=== PATIENT | male | born 1960 | race Caucasian/White ===

== ENCOUNTER 2016-11-15 19:23 | Emergency (ER) | payer BC ==
--- NOTE | 2016-11-15 20:00 | ER NURSING DOCUMENTATION ---
Nurse's Notes [facility] Name:Mireille Taylor Age:56 yrs Sex:Male :1960 Arrival Date:11/15/2016 Time:19:23 Bed1 Private MD:PhysicianVonda Diagnosis:Abrasion Presentation: 11/15 19:30 Presenting complaint: Patient states: scratch to right posterior lower leg from krista lb barbed wire. no tetanus for 17 years. Transition of care: Home. Notified ED Physician of Dr. Swain notified. 19:30 Acuity: CRYSTAL 4 lb 19:30 Method Of Arrival: Walk In lb Triage Assessment: 19:32 General: Appears in no apparent distress, Behavior is appropriate for age, pleasant. lb Pain: Denies pain. Musculoskeletal: No deficits noted. Injury Description: Abrasion sustained to right Achilles. Historical: - Allergies: PENICILLINS; - Home Meds: 1. losartan oral 2. Simvastatin Oral 3. Metoprolol Tartrate Oral - PMHx: Hypertension; HIGH CHOLESTEROL; - PSHx: Hip surgery; - Tetanus: > 10 years. - Ebola Screening: : Patient denies exposure to infectious person. Patient denies travel to an Ebola-affected area in the 21 days before illness onset. . - Immunization history: Flu Vaccine < 1 year. - Social history: Smoking status: Patient states was never smoker of tobacco. Patient uses alcohol only on a social basis. - Code Status:: Full code. Screenin:33 Infectious Disease Risk None. Abuse screen: Denies threats or abuse. Denies injuries lb from another. Nutritional screening: No deficits noted. Assessment: 19:33 See Triage Assessment done by same RN. lb Vital Signs: 19:28 BP 144 / 73 LA Sitting (auto/reg); Pulse 87 RA; Resp 16 S; Temp 98.5(O); Pulse Ox 97% em3 on R/A; Weight 117.93 kg (R); Height 5 ft. 9 in. (175.26 cm) (R); 19:28 Body Mass Index 38.39 (117.93 kg, 175.26 cm) em3 ED Course: 19:27 Patient arrived in ED. ma1 19:27 Physician, No is Private Physician. ma1 19:29 Valuables Remains with patient Patient has correct armband on for positive em3 identification. Bed in low position. Call light in reach. Side rails up X 1. 19:30 Vanessa Glass is Primary Nurse. lb 19:31 Triage completed. lb 19:48 Feliberto Swain MD is Attending Physician. tl1 Administered Medications: 19:53 Drug: Tetanus-Diphtheria Toxoid Adult 0.5 ml; {Application Penetration Tester: [employer] P[employer] ([employer]). lb Exp: 05/20/2018. Lot #: [id number]. } Route: IM; Site: left deltoid; 19:53 Follow up: Response: No adverse reaction Outcome: 19:52 Discharge ordered by . tl1 20:00 Discharged to home lb 20:00 Condition: good 20:00 Discharge Assessment: Patient awake, alert and oriented x 3. No cognitive and/or functional deficits noted. Patient verbalized understanding of disposition instructions. 20:00 Instructed on discharge instructions, follow up and referral plans. 20:00 Patient left the ED. 11/16 12:28 Discharge F/U Call: Spoke with: patient. other: Name: pt has no questions or st concerns. Signatures: Harmony Brandt, RN Contreras Serrano 3 Feliberto Swain MD MD tl1 Vanessa Glass Pauline Springer me1
[2016-11-15] MEDS ORDERED: DIPH,PERTUSS(ACELL),TET VAC/PF 0.5 ML VIAL IM ONE (20:04)
--- NOTE | 2016-11-17 20:00 | ER PHYSICIAN DOCUMENTATION ---
Physician Documentation [facility] Name:Mireille Taylor Age:56 yrs Sex:Male :1960 Arrival Date:11/15/2016 Time:19:23 Bed1 Private MD:Physician, No ED Feliberto Shukla Disposition: 11/17 08:47 Chart complete. tl1 Disposition: 11/15/16 19:52 Discharged to Home/Self Care. Impression: Abrasion. - Condition is Good. - Discharge Instructions: ABRASION. - Medical Reconciliation form form. - Follow up: Private Physician; When: As needed. - Problem is new. - Symptoms are unchanged. HPI: 11/15 19:45 This 56 yrs old Male presents to ER via Walk In with complaints of Leg Injury tl1 - RIGHT. 19:45 He scratched his right medial distal calf on some old krista barbed wire a couple hours tl1 ago. He is here only because he has not had a tetanus shot in 17 years. No other complaint.. Historical: - Allergies: PENICILLINS; - Home Meds: 1. losartan oral 2. Simvastatin Oral 3. Metoprolol Tartrate Oral - PMHx: Hypertension; HIGH CHOLESTEROL; - PSHx: Hip surgery; - Tetanus: > 10 years. - Ebola Screening: : Patient denies exposure to infectious person. Patient denies travel to an Ebola-affected area in the 21 days before illness onset. . - Immunization history: Flu Vaccine < 1 year. - Social history: Smoking status: Patient states was never smoker of tobacco. Patient uses alcohol only on a social basis. - Code Status:: Full code. ROS: 19:45 MS/extremity: Positive for abrasion. tl1 Exam: 19:50 Constitutional: This is a well developed, well nourished patient who is awake, alert, tl1 and in no acute distress. 19:50 Cardiovascular: Rate: normal. 19:50 Respiratory: Respirations: normal. 19:50 Musculoskeletal/extremity: Extremities: grossly normal except: noted in the medial aspect of right calf: He has a few very superficial scratches to his right distal medial calf which are not bleeding.. Vital Signs: 19:28 BP 144 / 73 LA Sitting (auto/reg); Pulse 87 RA; Resp 16 S; Temp 98.5(O); Pulse Ox 97% em3 on R/A; Weight 117.93 kg (R); Height 5 ft. 9 in. (175.26 cm) (R); 19:28 Body Mass Index 38.39 (117.93 kg, 175.26 cm) em3 MDM: 19:36 Patient medically screened. tl1 19:50 Data reviewed: vital signs, nurses notes, and as a result, I will discharge patient. tl1 Counseling: I had a detailed discussion with the patient and/or guardian regarding: the historical points, exam findings, and any diagnostic results supporting the discharge/admit diagnosis, the need for outpatient follow up, to return to the emergency department if symptoms worsen or persist or if there are any questions or concerns that arise at home. Response to treatment: There is no appreciated change of the patient's symptoms at this time. ED course: Tetanus booster. 19:55 Patient medically screened. tl1 Dispensed Medications: 19:53 Drug: Tetanus-Diphtheria Toxoid Adult 0.5 ml; {Semiconductor Engineer: [employer] P[employer] ([employer]). lb Exp: 05/20/2018. Lot #: [id number]. } Route: IM; Site: left deltoid; 19:53 Follow up: Response: No adverse reaction lb Signatures: Feliberto Swain MD MD tl1 Vanessa Glass lb
== END 2016-11-15 20:00 | disposition home or self-care (01) ==
LOC: ER 19:23
DX: S80.811A Abrasion, right lower leg, initial encounter (principal); W26.8XXA Contact with other sharp object(s), not elsewhere classified, initial encounter; Z23 Encounter for immunization
CPT/HCPCS: 90471; 99283